=== PATIENT | male | born 1960 | race African-American/Black ===

== ENCOUNTER 2023-03-23 18:06 | Inpatient (IN) | payer OTHER ==
[2023-03-23 19:31] VITALS: BMI 44.9
[2023-03-23] MEDS ORDERED: BENZONATATE 200 MG CAPSULE PO PRN (20:42)
[2023-03-23] MEDS ORDERED: BENZOCAINE/MENTHOL (CHLORASEPTIC ) LOZENGE MM PRN (20:42)
[2023-03-23] MEDS ORDERED: DICYCLOMINE HCL 10 MG CAPSULE PO PRN (20:42)
[2023-03-23] MEDS ORDERED: guaiFENesin 600 MG TABLET.ER (FP) PO PRN (20:42)
[2023-03-23] MEDS ORDERED: NICOTINE POLACRILEX 2 MG GUM BUC PRN (20:42)
[2023-03-23] MEDS ORDERED: ONDANSETRON *ODT* 4 MG TABLET SL PRN (20:42)
[2023-03-23] MEDS ORDERED: NALOXONE HCL (KLOXXADO) 8 MG SPRAY NS PRN (20:42)
[2023-03-23] MEDS ORDERED: LOPERAMIDE HCL 2 MG CAPSULE PO PRN (20:42)
[2023-03-23] MEDS ORDERED: IBUPROFEN 400 MG TABLET (FP) PO PRN (20:42)
[2023-03-23] MEDS ORDERED: IBUPROFEN 600 MG TABLET (FP) PO PRN (20:42)
[2023-03-23] MEDS ORDERED: BISMUTH SUBSALICYLATE 524 MG/30 ML PO PRN (20:42)
[2023-03-23] MEDS ORDERED: NALOXONE HCL 0.4 MG/ML VIAL IM PRN (20:42)
[2023-03-23] MEDS ORDERED: ACETAMINOPHEN 325 MG TABLET (FP) PO PRN (20:42)
[2023-03-23] MEDS ORDERED: POLYETHYLENE GLYCOL (HEALTHYLAX) 3350 17 GM PACKET PO PRN (20:42)
[2023-03-23] MEDS ORDERED: MAG HYDROX/AL HYDROX/SIMETH 30 ML UNIT-DOSE CUP PO PRN (20:42)
[2023-03-23] MEDS ORDERED: MAGNESIUM HYDROX 2400MG/30ML ORAL SUSPENSION 30 ML CUP PO PRN (20:42)
[2023-03-23] MEDS ORDERED: cloNIDine HCL 0.1 MG TABLET PO PRN (20:47)
[2023-03-23] MEDS ORDERED: methaDONE HCL 10 MG TABLET (FOR DETOX USE ONLY) PO ONE ×2 (20:47→23:00)
[2023-03-23] MEDS: THIAMINE HCL 100 MG TABLET (FP) PO SCH (22:53)
[2023-03-23] MEDS: METHOCARBAMOL 500 MG TABLET PO PRN (22:53)
[2023-03-23] MEDS: MELATONIN 5 MG TABLETS PO SCH (22:54)
[2023-03-24] MEDS: PRENATAL VITAMINS W/ FOLIC ACID TABLET (FP) PO SCH (10:45)
[2023-03-24] MEDS: NICOTINE 21 MG/24 HOURS TOPICAL PATCH TD SCH (10:48)
[2023-03-24] MEDS: METHOCARBAMOL 500 MG TABLET PO PRN (13:04)
[2023-03-24] MEDS: MELATONIN 5 MG TABLETS PO SCH (22:57)
[2023-03-24] MEDS: THIAMINE HCL 100 MG TABLET (FP) PO SCH (22:58)
[2023-03-25] MEDS ORDERED: methaDONE HCL 10 MG TABLET (FOR DETOX USE ONLY) PO ONE (10:00)
[2023-03-25] MEDS: PRENATAL VITAMINS W/ FOLIC ACID TABLET (FP) PO SCH (10:58)
[2023-03-25] MEDS: NICOTINE 21 MG/24 HOURS TOPICAL PATCH TD SCH (11:00)
[2023-03-25] MEDS: MELATONIN 5 MG TABLETS PO SCH (22:39)
[2023-03-25] MEDS: THIAMINE HCL 100 MG TABLET (FP) PO SCH (22:39)
[2023-03-26] MEDS: NICOTINE 21 MG/24 HOURS TOPICAL PATCH TD SCH (10:33)
[2023-03-26] MEDS: PRENATAL VITAMINS W/ FOLIC ACID TABLET (FP) PO SCH (10:33)
[2023-03-26] MEDS: THIAMINE HCL 100 MG TABLET (FP) PO SCH (22:25)
[2023-03-26] MEDS: MELATONIN 5 MG TABLETS PO SCH (22:25)
[2023-03-27] MEDS ORDERED: methaDONE HCL 10 MG TABLET (FOR DETOX USE ONLY) PO ONE (10:00)
[2023-03-27] MEDS: NICOTINE 21 MG/24 HOURS TOPICAL PATCH TD SCH (10:10)
[2023-03-27] MEDS: PRENATAL VITAMINS W/ FOLIC ACID TABLET (FP) PO SCH (10:10)
[2023-03-27] MEDS: LISINOPRIL 5 MG TABLET PO SCH ×2 (13:14→13:15)
[2023-03-27 18:07] LABS: BASO % 1.1 % (0-2.0); HEMATOCRIT 37.7 % (35.4-49); MCH 27.8 pg (25.7-33.7); MCHC 31.9 g/dl (32.0-35.9); MEAN CELL VOLUME 87.1 fl (80-96); MEAN PLT VOLUME 8.5 fl (7.5-11.1); MONO % 10.3 % (3.8-10.2); NEUT % 52.6 % (42.8-82.8); PLATELET COUNT 203 10^3/uL (134-434); RBC 4.33 M/mm3 (4.00-5.60); RDW 16.3 % (11.9-15.9); WHITE BLOOD COUNT 4.6 K/mm3 (4.0-10.0)
[2023-03-27 18:12] LABS: POTASSIUM 4.2 mmol/L (3.5-5.1)
[2023-03-27 18:17] LABS: CALCIUM 8.5 mg/dL (8.5-10.1)
[2023-03-27 18:18] LABS: BLOOD UREA NITROGEN 17.9 mg/dL (7-18)
[2023-03-27 18:21] LABS: CREATININE 1.2 mg/dL (0.55-1.3)
[2023-03-27] MEDS: THIAMINE HCL 100 MG TABLET (FP) PO SCH (23:10)
[2023-03-27] MEDS: MELATONIN 5 MG TABLETS PO SCH (23:10)
[2023-03-28 09:06] VITALS: TEMP 98.8
[2023-03-28] MEDS: PRENATAL VITAMINS W/ FOLIC ACID TABLET (FP) PO SCH (10:23)
[2023-03-28] MEDS: LISINOPRIL 5 MG TABLET PO SCH (10:23)
[2023-03-28] MEDS: NICOTINE 21 MG/24 HOURS TOPICAL PATCH TD SCH (10:24)
[2023-03-28 13:14] VITALS: BP 138/55; PULSE 66; RESP 20
== END 2023-03-28 14:22 | disposition other institution (70) | DRG 773 ==
LOC: YASAS 18:06 → Y3N 21:13
PROVIDERS: ADMIT Allergy & Immunology; ATTEND Surgery
PROC: HZ2ZZZZ Detoxification Services for Substance Abuse Treatment (ICD-10-PCS; principal; 2023-03-23)
DX: F11.23 Opioid dependence with withdrawal (principal); F14.20 Cocaine dependence, uncomplicated; F17.210 Nicotine dependence, cigarettes, uncomplicated; I10 Essential (primary) hypertension; E66.01 Morbid (severe) obesity due to excess calories; Z68.41 Body mass index [BMI] 40.0-44.9, adult
CPT/HCPCS: 36415; 80048; 85025; 87635; 93005; 93010

== ENCOUNTER 2023-03-28 14:37 | Inpatient (IN) | payer OTHER ==
[2023-03-28] MEDS ORDERED: BACLOFEN 10 MG TABLET (FP) PO PRN (15:58)
[2023-03-28] MEDS ORDERED: POLYETHYLENE GLYCOL (HEALTHYLAX) 3350 17 GM PACKET PO PRN (15:58)
[2023-03-28] MEDS ORDERED: NALOXONE HCL (KLOXXADO) 8 MG SPRAY NS PRN (15:58)
[2023-03-28] MEDS ORDERED: MAG HYDROX/AL HYDROX/SIMETH 30 ML UNIT-DOSE CUP PO PRN (15:58)
[2023-03-28] MEDS ORDERED: NICOTINE 10 MG CARTRIDGE (INHALER) IH PRN (15:58)
[2023-03-28] MEDS ORDERED: AMMONIUM LACTATE 12% LOTION 225 GM BOTTLE TP PRN (15:58)
[2023-03-28] MEDS ORDERED: BENZONATATE 200 MG CAPSULE PO PRN (15:58)
[2023-03-28] MEDS ORDERED: IBUPROFEN 400 MG TABLET (FP) PO PRN (15:58)
[2023-03-28] MEDS ORDERED: MAGNESIUM HYDROX 2400MG/30ML ORAL SUSPENSION 30 ML CUP PO PRN (15:58)
[2023-03-28] MEDS ORDERED: BENZOCAINE/MENTHOL (CHLORASEPTIC ) LOZENGE MM PRN (15:58)
[2023-03-28] MEDS ORDERED: guaiFENesin 600 MG TABLET.ER (FP) PO PRN (15:58)
[2023-03-28] MEDS ORDERED: NALOXONE HCL 0.4 MG/ML VIAL IVPUSH PRN (15:58)
[2023-03-28] MEDS ORDERED: NICOTINE POLACRILEX 4 MG GUM BUC PRN (15:58)
[2023-03-28] MEDS ORDERED: LOPERAMIDE HCL 2 MG CAPSULE PO PRN (15:58)
[2023-03-28] MEDS ORDERED: hydrOXYzine PAMOATE 25 MG CAPSULE (FP) PO PRN (15:58)
[2023-03-28] MEDS ORDERED: IBUPROFEN 600 MG TABLET (FP) PO PRN (15:58)
[2023-03-28] MEDS ORDERED: NICOTINE 14 MG/24 HOURS TOPICAL PATCH TD PRN (15:58)
[2023-03-28] MEDS: cloNIDine HCL 0.1 MG TABLET PO SCH ×2 (16:17→21:22)
[2023-03-28] MEDS: THIAMINE HCL 100 MG TABLET (FP) PO SCH (21:22)
[2023-03-28] MEDS: MELATONIN 5 MG TABLETS PO SCH (21:22)
[2023-03-29] MEDS ORDERED: LISINOPRIL 5 MG TABLET PO SCH (10:00)
[2023-03-29] MEDS: LISINOPRIL 10 MG TABLET PO SCH ×2 (10:16→12:15)
[2023-03-29] MEDS: PRENATAL VITAMINS W/ FOLIC ACID TABLET (FP) PO SCH (10:16)
[2023-03-29] MEDS: ACETAMINOPHEN 325 MG TABLET (FP) PO PRN (12:14)
[2023-03-29] MEDS: MELATONIN 5 MG TABLETS PO SCH (21:05)
[2023-03-29] MEDS: THIAMINE HCL 100 MG TABLET (FP) PO SCH (21:06)
[2023-03-30] MEDS: LISINOPRIL 10 MG TABLET PO SCH (10:02)
[2023-03-30] MEDS: PRENATAL VITAMINS W/ FOLIC ACID TABLET (FP) PO SCH (10:02)
[2023-03-30] MEDS: MELATONIN 5 MG TABLETS PO SCH (21:30)
[2023-03-30] MEDS: THIAMINE HCL 100 MG TABLET (FP) PO SCH (21:30)
[2023-03-31] MEDS: PRENATAL VITAMINS W/ FOLIC ACID TABLET (FP) PO SCH (09:56)
[2023-03-31] MEDS: LISINOPRIL 10 MG TABLET PO SCH (09:57)
[2023-03-31] MEDS ORDERED: LISINOPRIL 10 MG TABLET PO ONE (12:12)
[2023-03-31] MEDS: MELATONIN 5 MG TABLETS PO SCH (21:19)
[2023-03-31] MEDS: THIAMINE HCL 100 MG TABLET (FP) PO SCH (21:19)
[2023-04-01] MEDS: PRENATAL VITAMINS W/ FOLIC ACID TABLET (FP) PO SCH (10:12)
[2023-04-01] MEDS: LISINOPRIL 10 MG TABLET PO SCH (10:12)
[2023-04-01] MEDS: SELENIUM SULFIDE 2.25% 180 ML SHAMPOO TP SCH (10:13)
[2023-04-01] MEDS: THIAMINE HCL 100 MG TABLET (FP) PO SCH (23:45)
[2023-04-01] MEDS: MELATONIN 5 MG TABLETS PO SCH (23:45)
[2023-04-02] MEDS: SELENIUM SULFIDE 2.25% 180 ML SHAMPOO TP SCH (10:27)
[2023-04-02] MEDS: LISINOPRIL 10 MG TABLET PO SCH (10:27)
[2023-04-02] MEDS: PRENATAL VITAMINS W/ FOLIC ACID TABLET (FP) PO SCH (10:27)
[2023-04-02] MEDS: THIAMINE HCL 100 MG TABLET (FP) PO SCH (21:58)
[2023-04-02] MEDS: MELATONIN 5 MG TABLETS PO SCH (21:58)
[2023-04-03] MEDS: LISINOPRIL 5 MG TABLET PO SCH ×2 (09:34→09:46)
[2023-04-03] MEDS: PRENATAL VITAMINS W/ FOLIC ACID TABLET (FP) PO SCH (09:34)
[2023-04-03] MEDS: SELENIUM SULFIDE 2.25% 180 ML SHAMPOO TP SCH (09:35)
[2023-04-03] MEDS: THIAMINE HCL 100 MG TABLET (FP) PO SCH (22:29)
[2023-04-03] MEDS: MELATONIN 5 MG TABLETS PO SCH (22:29)
[2023-04-04] MEDS: SELENIUM SULFIDE 2.25% 180 ML SHAMPOO TP SCH (06:46)
[2023-04-04] MEDS: PRENATAL VITAMINS W/ FOLIC ACID TABLET (FP) PO SCH (10:10)
[2023-04-04] MEDS: LISINOPRIL 5 MG TABLET PO SCH (10:11)
[2023-04-04] MEDS: THIAMINE HCL 100 MG TABLET (FP) PO SCH (23:23)
[2023-04-04] MEDS: MELATONIN 5 MG TABLETS PO SCH (23:23)
[2023-04-05] MEDS: SELENIUM SULFIDE 2.25% 180 ML SHAMPOO TP PRN (06:41)
[2023-04-05] MEDS: COLLOIDAL OATMEAL 1 BAR EACH TP PRN (07:46)
[2023-04-05] MEDS: PRENATAL VITAMINS W/ FOLIC ACID TABLET (FP) PO SCH (09:51)
[2023-04-05] MEDS: LISINOPRIL 5 MG TABLET PO SCH (09:52)
[2023-04-05] MEDS: MELATONIN 5 MG TABLETS PO SCH (23:13)
[2023-04-05] MEDS: THIAMINE HCL 100 MG TABLET (FP) PO SCH (23:14)
[2023-04-06] MEDS: SELENIUM SULFIDE 2.25% 180 ML SHAMPOO TP PRN (07:04)
[2023-04-06] MEDS: PRENATAL VITAMINS W/ FOLIC ACID TABLET (FP) PO SCH (10:17)
[2023-04-06] MEDS: LISINOPRIL 5 MG TABLET PO SCH (10:17)
[2023-04-06] MEDS: MELATONIN 5 MG TABLETS PO SCH (21:32)
[2023-04-06] MEDS: THIAMINE HCL 100 MG TABLET (FP) PO SCH (21:33)
[2023-04-07] MEDS: PRENATAL VITAMINS W/ FOLIC ACID TABLET (FP) PO SCH (10:08)
[2023-04-07] MEDS: LISINOPRIL 5 MG TABLET PO SCH (10:08)
[2023-04-07] MEDS: ACETAMINOPHEN 325 MG TABLET (FP) PO PRN (12:36)
[2023-04-07] MEDS: THIAMINE HCL 100 MG TABLET (FP) PO SCH (21:38)
[2023-04-07] MEDS: MELATONIN 5 MG TABLETS PO SCH (21:38)
[2023-04-08] MEDS: LISINOPRIL 5 MG TABLET PO SCH (10:25)
[2023-04-08] MEDS: PRENATAL VITAMINS W/ FOLIC ACID TABLET (FP) PO SCH (10:28)
[2023-04-08] MEDS: MELATONIN 5 MG TABLETS PO SCH (23:42)
[2023-04-08] MEDS: THIAMINE HCL 100 MG TABLET (FP) PO SCH (23:42)
[2023-04-09] MEDS: LISINOPRIL 5 MG TABLET PO SCH (09:35)
[2023-04-09] MEDS: PRENATAL VITAMINS W/ FOLIC ACID TABLET (FP) PO SCH (09:36)
[2023-04-09] MEDS: ACETAMINOPHEN 325 MG TABLET (FP) PO PRN (13:06)
[2023-04-09] MEDS: THIAMINE HCL 100 MG TABLET (FP) PO SCH (21:51)
[2023-04-09] MEDS: MELATONIN 5 MG TABLETS PO SCH (21:51)
[2023-04-10] MEDS: LISINOPRIL 5 MG TABLET PO SCH (09:25)
[2023-04-10] MEDS: PRENATAL VITAMINS W/ FOLIC ACID TABLET (FP) PO SCH (09:29)
[2023-04-10] MEDS: SELENIUM SULFIDE 2.25% 180 ML SHAMPOO TP SCH (10:00)
[2023-04-10] MEDS: BENZOCAINE 20 % GEL TUBE MM PRN (16:20)
[2023-04-10] MEDS: MELATONIN 5 MG TABLETS PO SCH (22:59)
[2023-04-10] MEDS: THIAMINE HCL 100 MG TABLET (FP) PO SCH (22:59)
[2023-04-11] MEDS: COLLOIDAL OATMEAL 1 BAR EACH TP PRN (08:36)
[2023-04-11] MEDS: LISINOPRIL 5 MG TABLET PO SCH (09:24)
[2023-04-11] MEDS: SELENIUM SULFIDE 2.25% 180 ML SHAMPOO TP SCH (09:25)
[2023-04-11] MEDS: PRENATAL VITAMINS W/ FOLIC ACID TABLET (FP) PO SCH (09:25)
[2023-04-11] MEDS: BENZOCAINE 20 % GEL TUBE MM PRN (09:28)
[2023-04-11] MEDS: ACETAMINOPHEN 325 MG TABLET (FP) PO PRN (13:20)
[2023-04-11] MEDS: MELATONIN 5 MG TABLETS PO SCH (21:50)
[2023-04-11] MEDS: THIAMINE HCL 100 MG TABLET (FP) PO SCH (21:50)
[2023-04-12] MEDS: BENZOCAINE 20 % GEL TUBE MM PRN (06:31)
[2023-04-12] MEDS: LISINOPRIL 5 MG TABLET PO SCH (09:28)
[2023-04-12] MEDS: PRENATAL VITAMINS W/ FOLIC ACID TABLET (FP) PO SCH (09:29)
[2023-04-12] MEDS: SELENIUM SULFIDE 2.25% 180 ML SHAMPOO TP SCH (09:29)
[2023-04-12] MEDS: ACETAMINOPHEN 325 MG TABLET (FP) PO PRN (16:35)
[2023-04-12] MEDS: THIAMINE HCL 100 MG TABLET (FP) PO SCH (23:50)
[2023-04-12] MEDS: MELATONIN 5 MG TABLETS PO SCH (23:50)
[2023-04-13] MEDS: LISINOPRIL 5 MG TABLET PO SCH (10:11)
[2023-04-13] MEDS: PRENATAL VITAMINS W/ FOLIC ACID TABLET (FP) PO SCH (10:11)
[2023-04-13] MEDS: SELENIUM SULFIDE 2.25% 180 ML SHAMPOO TP SCH (10:12)
[2023-04-13] MEDS: MELATONIN 5 MG TABLETS PO SCH (22:02)
[2023-04-13] MEDS: THIAMINE HCL 100 MG TABLET (FP) PO SCH (22:02)
[2023-04-14] MEDS: PRENATAL VITAMINS W/ FOLIC ACID TABLET (FP) PO SCH (09:58)
[2023-04-14] MEDS: LISINOPRIL 5 MG TABLET PO SCH (09:58)
[2023-04-14] MEDS: SELENIUM SULFIDE 2.25% 180 ML SHAMPOO TP SCH (09:59)
[2023-04-14] MEDS: THIAMINE HCL 100 MG TABLET (FP) PO SCH (22:09)
[2023-04-14] MEDS: MELATONIN 5 MG TABLETS PO SCH (22:09)
[2023-04-15 07:13] VITALS: RESP 18
[2023-04-15] MEDS: PRENATAL VITAMINS W/ FOLIC ACID TABLET (FP) PO SCH (09:20)
[2023-04-15] MEDS: LISINOPRIL 5 MG TABLET PO SCH (09:20)
[2023-04-15] MEDS: SELENIUM SULFIDE 2.25% 180 ML SHAMPOO TP SCH (09:30)
[2023-04-15] MEDS: MELATONIN 5 MG TABLETS PO SCH (23:06)
[2023-04-15] MEDS: THIAMINE HCL 100 MG TABLET (FP) PO SCH (23:07)
[2023-04-16 07:15] VITALS: TEMP 96.1
[2023-04-16] MEDS: LISINOPRIL 5 MG TABLET PO SCH (09:29)
[2023-04-16] MEDS: SELENIUM SULFIDE 2.25% 180 ML SHAMPOO TP SCH (09:30)
[2023-04-16] MEDS: PRENATAL VITAMINS W/ FOLIC ACID TABLET (FP) PO SCH (09:38)
[2023-04-16] MEDS: MELATONIN 5 MG TABLETS PO SCH (22:33)
[2023-04-16] MEDS: THIAMINE HCL 100 MG TABLET (FP) PO SCH (22:34)
[2023-04-17] MEDS: PRENATAL VITAMINS W/ FOLIC ACID TABLET (FP) PO SCH (10:13)
[2023-04-17] MEDS: LISINOPRIL 5 MG TABLET PO SCH (10:13)
[2023-04-17 10:30] VITALS: BP 147/56; PULSE 77
[2023-04-17] MEDS: THIAMINE HCL 100 MG TABLET (FP) PO SCH (23:20)
[2023-04-17] MEDS: MELATONIN 5 MG TABLETS PO SCH (23:20)
[2023-04-18] MEDS: LISINOPRIL 5 MG TABLET PO SCH (09:10)
[2023-04-18] MEDS: PRENATAL VITAMINS W/ FOLIC ACID TABLET (FP) PO SCH (09:10)
== END 2023-04-18 09:15 | disposition home or self-care (01) | DRG 772 ==
LOC: YASAS 14:37 → Y5N 14:39
PROVIDERS: ADMIT Allergy & Immunology; ATTEND Psychiatry & Neurology Pain Medicine
PROC: HZ42ZZZ Group Counseling for Substance Abuse Treatment, Cognitive-Behavioral (ICD-10-PCS; principal; 2023-03-28)
DX: F11.20 Opioid dependence, uncomplicated (principal); F14.20 Cocaine dependence, uncomplicated; I10 Essential (primary) hypertension; K12.0 Recurrent oral aphthae; A69.0 Necrotizing ulcerative stomatitis; E66.01 Morbid (severe) obesity due to excess calories; Z68.41 Body mass index [BMI] 40.0-44.9, adult; M25.572 Pain in left ankle and joints of left foot; W18.49XA Other slipping, tripping and stumbling without falling, initial encounter; Y92.231 Patient bathroom in hospital as the place of occurrence of the external cause

== ENCOUNTER 2024-04-25 20:01 | Inpatient (IN) | payer OTHER ==
[2024-04-25 20:40] VITALS: BMI 52.5
[2024-04-25] MEDS ORDERED: MAGNESIUM HYDROX 2400MG/30ML ORAL SUSPENSION 30 ML CUP PO PRN (21:24)
[2024-04-25] MEDS ORDERED: LOPERAMIDE HCL 2 MG CAPSULE PO PRN (21:24)
[2024-04-25] MEDS ORDERED: DICYCLOMINE HCL 10 MG CAPSULE PO PRN (21:24)
[2024-04-25] MEDS ORDERED: ACETAMINOPHEN 325 MG TABLET (FP) PO PRN (21:24)
[2024-04-25] MEDS ORDERED: NALOXONE HCL 0.4 MG/ML VIAL IM PRN (21:24)
[2024-04-25] MEDS ORDERED: BENZONATATE 200 MG CAPSULE PO PRN (21:24)
[2024-04-25] MEDS ORDERED: BISMUTH SUBSALICYLATE 524 MG/30 ML PO PRN (21:24)
[2024-04-25] MEDS ORDERED: POLYETHYLENE GLYCOL (HEALTHYLAX) 3350 17 GM PACKET PO PRN (21:24)
[2024-04-25] MEDS ORDERED: BENZOCAINE/MENTHOL (CHLORASEPTIC ) LOZENGE MM PRN (21:24)
[2024-04-25] MEDS ORDERED: ONDANSETRON *ODT* 4 MG TABLET SL PRN (21:24)
[2024-04-25] MEDS ORDERED: guaiFENesin 600 MG TABLET.ER (FP) PO PRN (21:24)
[2024-04-25] MEDS ORDERED: NALOXONE (NARCAN) HCL 4 MG/0.1 ML SPRAY NS PRN (21:24)
[2024-04-26] MEDS: THIAMINE 100 MG TABLET PO SCH (01:53)
[2024-04-26] MEDS: MELATONIN 5 MG TABLETS PO SCH (01:53)
[2024-04-26] MEDS: PRENATAL VITAMINS W/ FOLIC ACID TABLET (FP) PO SCH (10:14)
[2024-04-26] MEDS: NICOTINE 21 MG/24 HOURS TOPICAL PATCH TD SCH (10:14)
[2024-04-26] MEDS ORDERED: NICOTINE 21 MG/24 HOURS TOPICAL PATCH ONE (10:24)
[2024-04-26] MEDS ORDERED: PRENATAL VITAMINS W/ FOLIC ACID TABLET (FP) PO ONE (10:25)
[2024-04-26 11:16] LABS: HEMATOCRIT 36.5 % (35.4-49); HEMOGLOBIN 11.9 GM/dL (11.7-16.9); MCH 28.9 pg (25.7-33.7); MCHC 32.6 g/dl (32.0-35.9); MEAN CELL VOLUME 88.7 fl (80-96); MEAN PLT VOLUME 8.4 fl (7.5-11.1); PLATELET COUNT 212 10^3/uL (134-434); RBC 4.11 M/mm3 (4.00-5.60); RDW 16.3 % (11.9-15.9); WHITE BLOOD COUNT 5.8 K/mm3 (4.0-10.0)
[2024-04-26 11:25] LABS: CHLORIDE 110 mmol/L (98-107); POTASSIUM 3.9 mmol/L (3.5-5.1); SODIUM 140 mmol/L (136-145)
[2024-04-26 11:42] LABS: ANION GAP 5 mmol/L (4-13); BLOOD UREA NITROGEN 15.7 mg/dL (7-18); CALCIUM 8.7 mg/dL (8.5-10.1); CO2 25 mmol/L (21-32); GLUCOSE,RANDOM 119 mg/dL (74-106)
[2024-04-26 11:44] LABS: CREATININE 1.2 mg/dL (0.55-1.3); SGOT/AST 12 U/L (15-37); SGPT/ALT 16 U/L (13-61)
[2024-04-26 11:46] LABS: BILIRUBIN,TOTAL 0.2 mg/dL (0.2-1); TOT PROT 7.2 g/dl (6.4-8.2)
[2024-04-26 11:48] LABS: ALK PHOS 101 U/L (45-117)
[2024-04-26] MEDS: IBUPROFEN 600 MG TABLET (FP) PO PRN (22:19)
[2024-04-28] MEDS: NICOTINE POLACRILEX 4 MG GUM BUC PRN (06:42)
[2024-04-28] MEDS: IBUPROFEN 400 MG TABLET (FP) PO PRN (15:36)
[2024-04-29] MEDS ORDERED: BENZOCAINE 20 % GEL TUBE MM PRN (16:03)
[2024-04-29] MEDS: LISINOPRIL 5 MG TABLET PO SCH (16:56)
[2024-04-29] MEDS: LIDOCAINE PATCH REMOVAL MC SCH (22:00)
[2024-04-29] MEDS: ATORVASTATIN CA 10 MG TABLET (FP) PO SCH (22:00)
[2024-04-29] MEDS: BACITRACIN ZINC 15 GM TUBE TOPICAL OINTMENT TP SCH (22:00)
[2024-04-29] MEDS: BACLOFEN 10 MG TABLET (FP) PO SCH (22:00)
[2024-04-30] MEDS: LIDOCAINE 4% PATCH TP SCH (15:39)
[2024-04-30] MEDS: ACETAMINOPHEN 325 MG TABLET (FP) PO PRN (18:13)
[2024-04-30] MEDS: ACETAMINOPHEN 500 MG TABLET (FP) PO ONE (18:16)
[2024-05-03] MEDS: MAG HYDROX/AL HYDROX/SIMETH 30 ML UNIT-DOSE CUP PO PRN (13:06)
[2024-05-07] MEDS ORDERED: NICOTINE 21 MG/24 HOURS TOPICAL PATCH TD PRN (13:28)
[2024-05-07] MEDS ORDERED: LIDOCAINE 4% PATCH TP PRN (13:28)
[2024-05-09] MEDS: INSULIN ASPART SLIDING SCALE (NOVOLOG) 1 VIAL SQ SCH (17:46)
[2024-05-10] MEDS: amLODIPine BESYLATE 5 MG TABLET (FP) PO SCH (10:47)
[2024-05-14] MEDS: PANTOPRAZOLE 20 MG TABLET PO SCH (10:26)
[2024-05-15] MEDS: PANTOPRAZOLE 20 MG TABLET PO PRN (06:52)
[2024-05-17] MEDS ORDERED: PRENATAL VITAMINS W/ FOLIC ACID TABLET (FP) PO PRN (14:36)
[2024-05-19 07:08] VITALS: TEMP 97.4
[2024-05-20 07:17] VITALS: BP 147/80; PULSE 71; RESP 18
== END 2024-05-21 09:26 | disposition home or self-care (01) | DRG 772 ==
LOC: YASAS 20:01 → Y3NR 04-26 11:52 → Y3E 04-27 15:37
PROVIDERS: ADMIT Allergy & Immunology; ATTEND Psychiatry & Neurology Pain Medicine
PROC: HZ42ZZZ Group Counseling for Substance Abuse Treatment, Cognitive-Behavioral (ICD-10-PCS; principal; 2024-04-26)
DX: F10.20 Alcohol dependence, uncomplicated (principal); F14.20 Cocaine dependence, uncomplicated; F17.210 Nicotine dependence, cigarettes, uncomplicated; F19.24 Other psychoactive substance dependence with psychoactive substance-induced mood disorder; F41.9 Anxiety disorder, unspecified; F32.A Depression, unspecified; E78.5 Hyperlipidemia, unspecified; K21.9 Gastro-esophageal reflux disease without esophagitis; M54.50 Low back pain, unspecified; G89.29 Other chronic pain; R60.0 Localized edema; E11.9 Type 2 diabetes mellitus without complications; Z79.84 Long term (current) use of oral hypoglycemic drugs; E66.01 Morbid (severe) obesity due to excess calories; Z68.43 Body mass index [BMI] 50.0-59.9, adult
CPT/HCPCS: 36415; 80053; 80305; 80307; 82140; 82652; 82962; 83036; 83735; 85027; 86593; 86780; 87811; 93005; 93010; J0475